=== PATIENT | female | born 2000 | race Caucasian/White ===

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

== ENCOUNTER 2022-07-12 16:28 | Emergency (ER) | payer OTHER ==
[~2022-07-12] VITALS: Ht 167.6 cm; Wt 48.5 kg
[2022-07-12 17:06] VITALS: BP 103/51
--- NOTE | 2022-07-12 17:09 | NUR ---
BIB SELF C/O RIGHT ANKLE RASH S/P POSSIBLE BUG BITE X 2 DAYS.PMH: DENIES.
[2022-07-12] MEDS ORDERED: DIPH25TA53 PO (17:57)
[2022-07-12] MEDS ORDERED: CEPH-588 PO (17:57)
--- NOTE | 2022-07-12 18:08 | NUR ---
Patient discharged with v/s stable. Written and verbal after care instructions ABOUT CELLULITIS AND RASH given and explained. Patient alert, oriented and verbalized understanding of instructions. Ambulatory with steady gait. All questions addressed prior to discharge. ID band removed. Patient advised to follow up with PMD. Rx of KELFEX AND BENADRYL given. Patient educated on indication of medication including possible reaction and side effects. Opportunity to ask questions provided and answered.
== END 2022-07-12 18:08 | disposition home or self-care (01) ==
LOC: MED 16:28
DX: L03.115 Cellulitis of right lower limb (principal)
CPT/HCPCS: 99283

== ENCOUNTER 2022-08-07 19:44 | Emergency (ER) | payer OTHER ==
[~2022-08-07] VITALS: Ht 167.6 cm; Wt 49.0 kg
[~2022-08-07 19:44] MED LIST: CEPH-588 PO; DIPH25TA53 PO
[2022-08-07 19:56] VITALS: BP 110/70
--- NOTE | 2022-08-07 20:00 | NUR ---
CHUY TERAN examining patient in triage room.
[2022-08-07] MEDS ORDERED: PSEU-307 PO (20:04)
[2022-08-07] MEDS ORDERED: ONDA-188 SL (20:04)
[2022-08-07 20:12] VITALS: BP 110/70
--- NOTE | 2022-08-07 20:12 | NUR ---
Patient discharged with v/s stable. Written and verbal after care instructions given and explained for Sinusitis. Patient alert, oriented and verbalized understanding of instructions. Ambulatory with to car. All questions addressed prior to discharge. ID band removed. Patient advised to follow up with PMD. Rx of Zofran and Pseudeophedrine given. Patient educated on indication of medication including possible reaction and side effects. Opportunity to ask questions provided and answered.
== END 2022-08-07 20:12 | disposition home or self-care (01) ==
LOC: MED 19:44
DX: J32.2 Chronic ethmoidal sinusitis (principal); J32.0 Chronic maxillary sinusitis; R11.0 Nausea; Z79.899 Other long term (current) drug therapy
CPT/HCPCS: 99283

== ENCOUNTER 2022-10-02 18:35 | Emergency (ER) | payer OTHER ==
[~2022-10-02] VITALS: Ht 157.5 cm; Wt 54.4 kg
[~2022-10-02 18:35] MED LIST changes: +ONDA-188 SL; +PSEU-307 PO
[2022-10-02 18:42] VITALS: BP 125/68
--- NOTE | 2022-10-02 19:46 | NUR ---
CHUY Leon examining patient,
[2022-10-02] MEDS ORDERED: PROM118S5 PO (20:08)
[2022-10-02] MEDS ORDERED: IBUP-2213 PO (20:08)
[2022-10-02] MEDS ORDERED: SUD30 PO (20:08)
[2022-10-02 20:21] VITALS: BP 122/68
--- NOTE | 2022-10-02 20:21 | NUR ---
Patient discharged with v/s stable. Written and verbal after care instructions given and explained. Patient alert, oriented and verbalized understanding of instructions. Ambulatory with steady gait. All questions addressed prior to discharge. ID band removed. Patient advised to follow up with PMD. Rx of Ibuprofen, Promethazine-DM and Sudafed given. Patient educated on indication of medication including possible reaction and side effects. Opportunity to ask questions provided and answered.
== END 2022-10-02 20:21 | disposition home or self-care (01) ==
LOC: MED 18:35
DX: J11.1 Influenza due to unidentified influenza virus with other respiratory manifestations (principal); J32.2 Chronic ethmoidal sinusitis; J32.0 Chronic maxillary sinusitis; B97.89 Other viral agents as the cause of diseases classified elsewhere; Z79.899 Other long term (current) drug therapy
CPT/HCPCS: 99283

== ENCOUNTER 2023-11-25 01:00 | Emergency (ER) | payer OTHER ==
[~2023-11-25] VITALS: Ht 170.2 cm; Wt 61.2 kg
[~2023-11-25 01:00] MED LIST changes: +CYCL-711 PO; +IBUP-2213 PO; +LID5T TP; +NAPR-1704 PO; +PROM118S5 PO; +SUD30 PO
[2023-11-25 01:28] VITALS: BP 103/64; PULSE 93; RESP 16; TEMP 96.6; O2SAT 99
[2023-11-25] MEDS ORDERED: BENZ200C4 PO (02:00)
[2023-11-25] MEDS ORDERED: AMOX1TAB8 PO (02:00)
[2023-11-25 02:05] VITALS: BP 118/78; PULSE 80; RESP 16; TEMP 97.8; O2SAT 99
== END 2023-11-25 02:05 | disposition home or self-care (01) ==
LOC: MED 01:00
DX: J20.9 Acute bronchitis, unspecified (principal); Z79.899 Other long term (current) drug therapy
CPT/HCPCS: 99283

== ENCOUNTER 2023-12-29 09:04 | Emergency (ER) | payer OTHER ==
[~2023-12-29] VITALS: Ht 170.2 cm; Wt 55.0 kg
[~2023-12-29 09:04] MED LIST changes: +AMOX1TAB8 PO; +BENZ200C4 PO
[2023-12-29 09:25] VITALS: BP 109/67; PULSE 89; RESP 16; TEMP 98.1; O2SAT 99
[2023-12-29] MEDS ORDERED: NAPR-54 PO (10:16)
[2023-12-29] MEDS ORDERED: VALA1TAB2 PO (10:16)
[2023-12-29 10:36] VITALS: BP 121/82; PULSE 85; RESP 16; TEMP 97.8; O2SAT 99
== END 2023-12-29 10:36 | disposition home or self-care (01) ==
LOC: MED 09:04
DX: B00.1 Herpesviral vesicular dermatitis (principal); Z79.899 Other long term (current) drug therapy
CPT/HCPCS: 99283